=== PATIENT | female | born 1945 | race Caucasian/White ===

== ENCOUNTER 2022-05-06 13:11 | Inpatient (IN) | payer MEDICARE, BC, SELFPAY ==
[2022-05-06 13:32] VITALS: BP 217/115; PULSE 91; RESP 36; TEMP 37.1; O2SAT 84; BMI 31.6
[2022-05-06] MEDS: IPRAT-ALBUT 0.5-2.5 MG/3 ML NEB 1 NEB IH ×2 (13:39→23:40)
[2022-05-06] MEDS: ALBUTEROL SULFATE 2.5 MG/3 ML VIAL.NEB NEB ×2 (13:45→14:39)
--- NOTE | 2022-05-06 13:54 | CRLHL7_ITS ---
For Patients: As a result of the Cures Act, medical imaging exams and procedure reports are released immediately into your electronic medical record. You may view this report before your referring provider. If you have questions, please contact your health care provider. INDICATION: Cough. TECHNIQUE: Chest 2 views. COMPARISON: Chest radiograph 02/24/2020. FINDINGS: No focal consolidation, pleural effusion, or pneumothorax. Normal heart size and pulmonary vascularity. Degenerative changes of the spine. Anterior wedging of a lumbar vertebral body. Partially imaged deformity of the proximal right humerus appears new since prior exam. Correlate with patient history. IMPRESSION: No acute cardiopulmonary findings. Dictated by Macy Hartman MD @ 05/06/2022 2:47:01 PM (Electronically Signed)
[2022-05-06 13:55] VITALS: O2SAT 91
--- NOTE | 2022-05-06 13:59 | RESP.RT ---
Pt seen upon arrival. hypoxic on RA, SPO2 on 2-3L 93% PT with tight wheezing from the doorway. Duoneb given followed by 2.5mg of albuterol. Pt with improved aeration, however diffuse prolonged coarse expiratory wheezing remains. Pt poor historian. Unsure of meds or inhalers she takes. continue with aggressive nebulization. Will wait to see CXR result Suspect pt will be receiving IV steroids.
[2022-05-06] MEDS: METHYLPREDNISOLONE SOD SUCC 62.5 MG/ML (125) 125 MG IVP (14:38)
[2022-05-06 14:40] LABS: PCR FLU A Negative PCR FLU A (Negative); PCR FLU B Negative PCR FLU B (Negative); PCR RSV Negative PCR RSV (Negative)
[2022-05-06 14:56] LABS: Basophils Absolute Auto 0.06 K/uL (0.00-0.30); Basophils Percent Auto 1.3 % (0.0-3.0); Eosinophils Absolute Auto 0.22 K/uL (0.00-0.50); Eosinophils Percent Auto 4.8 % (0.0-7.0); Hematocrit 42.1 % (33.0-51.0); Hemoglobin* 14.1 gm/dL (12.0-16.0); Immature Granulocytes Abs Auto 0.01 K/uL (0.00-0.30); Immature Granulocytes Pct Auto 0.2 %; Lymphocytes Percent Auto 13.2 % (20-44); Mean Corpuscular HGB Conc 34 gm/dL (32-36); Mean Corpuscular Hemoglobin 29 pg (26-34); Mean Corpuscular Volume 87 fL (80-100); Monocytes Percent Auto 7.8 % (0.0-11.0); Neutrophils Percent Auto 72.7 % (42.0-72.0); Platelet Count* 152 K/uL (140-440); RDW Coefficient of Variation % 13.2 % (11.5-15.5); Red Blood Count 4.83 m/uL (4.00-5.20); White Blood Count* 4.62 K/uL (4.50-11.00)
[2022-05-06 15:01] LABS: Troponin, Point-of-Care* 0.02 ng/ml (0.01-0.04)
[2022-05-06 15:04] LABS: SARS PCR* Negative SARS-CoV-2 (Negative)
[2022-05-06 15:08] LABS: INR 1.07 (0.91-1.10); Prothrombin Time 14.5 Seconds
[2022-05-06 15:13] LABS: Slide Review Reflex No
[2022-05-06 15:14] LABS: Partial Thromboplastin Time* 25 Seconds (23-33)
--- NOTE | 2022-05-06 15:14 | ED.SOB ---
HPI - SOB/Dyspnea General Date Seen: 05/06/22 Chief Complaint: Shortness of Breath/Dyspnea Stated Complaint: shortness of breath Time Seen by Provider: 05/06/22 13:37 Source: patient and family Mode of arrival: ambulatory Limitations: no limitations History of Present Illness HPI Narrative: Patient is the 76-year-old lady who presents here for shortness of breath, her initial saturations are in the low 80s, she has a history of asthma and tightness and COPD, she is immediately given a DuoNeb followed up with another neb of albuterol, I to see her in the room2 in no apparent distress, with increased work of breathing, she is able to speak to me now and pretty well full sentences, the saturations just post neb at 100%. She tells me that she has had this before, and it comes on rather suddenly, no history of intubation, denies any fevers chills or sweats, has had a cold with a runny nose, no nausea vomiting no diarrhea, no rash MD elicited complaint: shortness of breath and cough Pertinent past history: COPD and asthma Onset (ago): day(s) Context: recent illness Timing: constant Severity: moderate Exacerbating factors: nothing Related Data Home oxygen amount: none Home Medications Medication Instructions Recorded Confirmed albuterol sulfate 2.5 mg/3 mL mg 05/06/22 (0.083 %) solution for nebulization albuterol sulfate 90 mcg/actuation inhalation 05/06/22 aerosol inhaler budesonide 1 mg/2 mL suspension mg 05/06/22 for nebulization clonazepam 1 mg tablet mg 05/06/22 fluticasone propionate 110 inhalation 05/06/22 mcg/actuation HFA aerosol inhaler (Flovent HFA) levothyroxine 88 mcg tablet mcg 05/06/22 sertraline 25 mg tablet mg 05/06/22 Allergies Allergy/AdvReac Type Severity Reaction Status Date / Time No Known Drug Allergies Allergy Verified 05/06/22 13:36 Review of Systems Status of ROS: Reports: 10 or more systems reviewed and unremarkable except as noted in History and below PFSH PFSH Social History Smoking Status: Former smoker Do you use any of these nicotine containing products: None Second hand tobacco smoke exposure: No How often do you have a drink containing alcohol: never AUDIT-C Alcohol total score: 0 Non-prescribed substance use: denies use Exam Const: Vital Signs, click to edit/add: Vital Signs - 24 hr 05/06/22 13:32 05/06/22 15:27 Temperature 98.7 F 98.3 F Pulse Rate [Pulse Oximeter] 91 Respiratory Rate 36 H 28 H Blood Pressure [Le ft Upper Arm] 217/115 H 151/66 H Pulse Oximetry 84 L 92 Oxygen Delivery Me thod Room Air Nasal Cannula Course Course Hospital Course: Yaneth continued to still struggle to breathe a little bit, we had to repeat the neb again, her saturation have markedly rib prove or improved into the 96% range. Reevaluation(s) Reevaluation #1: Went back and saw the patient, she still requiring oxygen, off oxygen she dipped down into the 87% range, I took a lot of talking, to get her to convinced to come into the hospital, her need for oxygen, had the respiratory therapist also see her,. At this point, she will be needing both oxygen, and nebulize treatments. Along with steroids. I spoke to the inpatient physician Dr. Chun, who agreed to admit her to the hospital. Time: 16:35 Vital Signs Vital signs: Initial Vital Signs Temperature 98.7 F 05/06/22 13:32 Temperature Source Temporal Artery Scan 05/06/22 13:32 Pulse Rate 91 05/06/22 13:32 Respiratory Rate 36 H 05/06/22 13:32 Blood Pressure 217/115 H 05/06/22 13:32 Blood Pressure Mean 149 05/06/22 13:32 Blood Pressure Position Supine 05/06/22 13:32 Pulse Oximetry 84 L 05/06/22 13:32 Oxygen Delivery Method 05/06/22 13:32 Vital Signs Temperature 98.7 F 05/06/22 13:32 Pulse Rate 91 05/06/22 13:32 Respiratory Rate 36 H 05/06/22 13:32 Blood Pressure 217/115 H 05/06/22 13:32 Pulse Oximetry 84 L 05/06/22 13:32 Oxygen Delivery Method 05/06/22 13:32 Temperature 98.3 F 05/06/22 15:27 Pulse Rate 91 05/06/22 13:32 Respiratory Rate 28 H 05/06/22 15:27 Blood Pressure 151/66 H 05/06/22 15:27 Pulse Oximetry 92 05/06/22 15:27 Oxygen Delivery Method 05/06/22 15:27 MDM - SOB/Dyspnea MDM Narrative Medical decision making narrative: Life-threatening differential diagnosis includes occluded COPD exacerbation, pulmonary edema, acute coronary syndromes, pulmonary embolism, pneumonia, and pneumothorax. Other differential diagnosis considerations include asthma, bronchitis as well as other etiologies Differential Diagnosis Differential diagnosis: Likely acute exacerbation of chronic obstructive airways disease, congestive heart failure, community acquired pneumonia, asthma with exacerbation and pulmonary embolism Medical Records Attestation: I reviewed the patient's medical records. Lab Data Attestation: I reviewed the patient's lab results. Labs: Lab Results 05/06/22 05/06/22 05/06/22 Range/Units 13:50 13:55 14:17 WBC (4.50-11.00) K/uL RBC (4.00-5.20) m/uL Hgb (12.0-16.0) gm/dL Hct (33.0-51.0) % MCV (80-100) fL MCH (26-34) pg MCHC (32-36) gm/dL RDW Coeff of Dianna (11.5-15.5) % Plt Count (140-440) K/uL Neut % (Auto) (42.0-72.0) % Lymph % (Auto) (20-44) % [place] % (Auto) (0.0-11.0) % Eos % (Auto) (0.0-7.0) % Baso % (Auto) (0.0-3.0) % Neut # (Auto) (1.7-7.0) K/uL Lymph # (Auto) (0.90-2.90) K/uL [place] # (Auto) (0.00-0.90) K/UL Eos # (Auto) (0.00-0.50) K/uL Baso # (Auto) (0.00-0.30) K/uL Abs Immat Gran (auto) (0.00-0.30) K/uL Imm/Tot Granulo (auto) % INR (0.91-1.10) APTT (23-33) Seconds Sodium (135-149) mmol/L Potassium (3.6-5.1) mmol/L Chloride (96-114) mmol/L Carbon Dioxide (20-32) mmol/L BUN (7-30) mg/dL Creatinine (0.5-1.5) mg/dL Estimated Creat Clear Estimated GFR ml/min Glucose (60-115) mg/dL Calcium (8.4-10.6) mg/dL NT-Pro-B Natriuret Pep pg/mL SARS-CoV-2 (PCR) Negative SARS-CoV-2 Negative SARS-CoV-2 (Negative) Influenza Type A (PCR) Negative PCR FLU A Negative PCR FLU A (Negative) Influenza Type B (PCR) Negative PCR FLU B Negative PCR FLU B (Negative) RSV (PCR) Negative PCR RSV Negative PCR RSV (Negative) POC Troponin I 0.02 (0.01-0.04) ng/ml 05/06/22 05/06/22 05/06/22 Range/Units 14:30 14:30 14:30 WBC 4.62 (4.50-11.00) K/uL RBC 4.83 (4.00-5.20) m/uL Hgb 14.1 (12.0-16.0) gm/dL Hct 42.1 (33.0-51.0) % MCV 87 (80-100) fL MCH 29 (26-34) pg MCHC 34 (32-36) gm/dL RDW Coeff of Dianna 13.2 (11.5-15.5) % Plt Count 152 (140-440) K/uL Neut % (Auto) 72.7 H (42.0-72.0) % Lymph % (Auto) 13.2 L (20-44) % [place] % (Auto) 7.8 (0.0-11.0) % Eos % (Auto) 4.8 (0.0-7.0) % Baso % (Auto) 1.3 (0.0-3.0) % Neut # (Auto) 3.40 (1.7-7.0) K/uL Lymph # (Auto) 0.60 L (0.90-2.90) K/uL [place] # (Auto) 0.40 (0.00-0.90) K/UL Eos # (Auto) 0.22 (0.00-0.50) K/uL Baso # (Auto) 0.06 (0.00-0.30) K/uL Abs Immat Gran (auto) 0.01 (0.00-0.30) K/uL Imm/Tot Granulo (auto) 0.2 % INR 1.07 (0.91-1.10) APTT 25 (23-33) Seconds Sodium 137 (135-149) mmol/L Potassium 4.0 (3.6-5.1) mmol/L Chloride 102 (96-114) mmol/L Carbon Dioxide 28 (20-32) mmol/L BUN 9 (7-30) mg/dL Creatinine 0.7 (0.5-1.5) mg/dL Estimated Creat Clear 43.74 Estimated GFR 90 ml/min Glucose 108 (60-115) mg/dL Calcium 9.5 (8.4-10.6) mg/dL NT-Pro-B Natriuret Pep pg/mL SARS-CoV-2 (PCR) (Negative) Influenza Type A (PCR) (Negative) Influenza Type B (PCR) (Negative) RSV (PCR) (Negative) POC Troponin I (0.01-0.04) ng/ml 05/06/22 Range/Units 14:30 WBC (4.50-11.00) K/uL RBC (4.00-5.20) m/uL Hgb (12.0-16.0) gm/dL Hct (33.0-51.0) % MCV (80-100) fL MCH (26-34) pg MCHC (32-36) gm/dL RDW Coeff of Dianna (11.5-15.5) % Plt Count (140-440) K/uL Neut % (Auto) (42.0-72.0) % Lymph % (Auto) (20-44) % [place] % (Auto) (0.0-11.0) % Eos % (Auto) (0.0-7.0) % Baso % (Auto) (0.0-3.0) % Neut # (Auto) (1.7-7.0) K/uL Lymph # (Auto) (0.90-2.90) K/uL [place] # (Auto) (0.00-0.90) K/UL Eos # (Auto) (0.00-0.50) K/uL Baso # (Auto) (0.00-0.30) K/uL Abs Immat Gran (auto) (0.00-0.30) K/uL Imm/Tot Granulo (auto) % INR (0.91-1.10) APTT (23-33) Seconds Sodium (135-149) mmol/L Potassium (3.6-5.1) mmol/L Chloride (96-114) mmol/L Carbon Dioxide (20-32) mmol/L BUN (7-30) mg/dL Creatinine (0.5-1.5) mg/dL Estimated Creat Clear Estimated GFR ml/min Glucose (60-115) mg/dL Calcium (8.4-10.6) mg/dL NT-Pro-B Natriuret Pep 812 pg/mL SARS-CoV-2 (PCR) (Negative) Influenza Type A (PCR) (Negative) Influenza Type B (PCR) (Negative) RSV (PCR) (Negative) POC Troponin I (0.01-0.04) ng/ml Imaging Data Chest x-ray: Attestation: I have reviewed the pertinent imaging results. My impression: No acute finding Radiologist's impression: Patient: YANETH BOWMAN Facility: [facility] Site . Site : 1945 Study: XRay Chest 2 VIEW-05/06/2022 2:30:37 PM Ordering Physician: Carmen Romo Final Report: INDICATION: Cough. TECHNIQUE: Chest 2 views. COMPARISON: Chest radiograph 02/24/2020. FINDINGS: No focal consolidation, pleural effusion, or pneumothorax. Normal heart size and pulmonary vascularity. Degenerative changes of the spine. Anterior wedging of a lumbar vertebral body. Partially imaged deformity of the proximal right humerus appears new since prior exam. Correlate with patient history. IMPRESSION: No acute cardiopulmonary findings. Dictated by Macy Hartman MD @ 05/06/2022 2:47:01 PM (Electronic Signature) Discharge Plan Discharge Clinical Impression: Acute infective exacerbation of chronic obstructive airway disease Patient Disposition: Admitted As Inpatient Prescriptions: No Action albuterol sulfate 2.5 mg /3 mL (0.083 %) solution for nebulization Label Comments: INHALE 3 ML VIA A NEBULIZER EVERY 6 HOURS clonazepam 1 mg tablet Label Comments: TAKE ONE TABLET BY MOUTH TWICE A DAY levothyroxine 88 mcg tablet Label Comments: TAKE ONE TABLET BY MOUTH EVERY DAY sertraline 25 mg tablet Label Comments: TAKE ONE TABLET BY MOUTH EVERY MORNING albuterol sulfate 90 mcg/actuation HFA aerosol inhaler INHALATION Label Comments: INHALE TWO PUFFS BY MOUTH EVERY 4 HOURS NEEDED FOR SHORTNESS OF BREATH OR WHEEZING fluticasone propionate [Flovent HFA] 110 mcg/actuation HFA aerosol inhaler INHALATION Label Comments: INHALE ONE PUFF BY MOUTH TWICE A DAY budesonide 1 mg/2 mL suspension for nebulization Label Comments: INHALE 2 ML VIA A NEBULIZER TWO TIMES A DAY Follow Up/Referrals: Provider,Not a Local [Primary Care Provider] -
[2022-05-06 15:18] LABS: PCR FLU A Negative PCR FLU A (Negative); PCR FLU B Negative PCR FLU B (Negative); PCR RSV Negative PCR RSV (Negative)
[2022-05-06 15:25] LABS: SARS PCR* Negative SARS-CoV-2 (Negative)
[2022-05-06 15:27] VITALS: BP 151/66; RESP 28; TEMP 36.8; O2SAT 92
[2022-05-06 15:32] LABS: NT Pro B Type NatriureticPept* 812 pg/mL
[2022-05-06 15:46] LABS: Chloride* 102 mmol/L (96-114); Sodium* 137 mmol/L (135-149)
[2022-05-06 15:48] LABS: Creatinine* 0.7 mg/dL (0.5-1.5); Est. Creatinine Clearance* 43.74; Estimated Glomerular Filt Rate 90 ml/min
[2022-05-06 15:49] LABS: Blood Urea Nitrogen* 9 mg/dL (7-30); Calcium* 9.5 mg/dL (8.4-10.6); Carbon Dioxide* 28 mmol/L (20-32); Glucose* 108 mg/dL (60-115)
--- NOTE | 2022-05-06 17:14 | P.IMHP_ITS ---
Hospitalist- H&P: HPI History of Present Illness Date Seen: 05/06/22 Chief complaint: shortness of breath Narrative: Alissa Red is a 76 year old female with longstanding history of asthma admitted through the emergency department with 3-4 days of progressive dyspnea. She reports that she has had progressive dyspnea with cough productive of whitish sputum. She is not aware of any fever. He is having no chest pain. No orthopnea. She reports a diagnosis of asthma. She does not carry a diagnosis of COPD. She smoked minimally in high school up to about age 21. She did a londono and lived with him until about 35 years ago. No other obvious exposures. Patient has significant cognitive impairment or dementia. She is here with her who gives additional information about her history along with what is obtained from the medical record. Patient is unaware of getting any asthma treatments including inhalers or nebulizers but her reports that she does take them. Unclear if she is taking them regularly. These include albuterol inhaler, albuterol nebulizer, Flovent. She reports no heart disease though her record shows that she has a history of paroxysmal atrial fibrillation. Previously treated with Rythmol and anticoagulation. Review of Systems Narrative: Other than her cough and trouble breathing she reports generally feeling well. Her appetite has been less than usual. No abdominal pain nausea vomiting. No chest pain. [facility] Medical History (Updated 05/06/22 @ 17:36 by Bert Chun MD) Anxiety Asthma Dementia Depression Hypertension Obstructive sleep apnea Osteoarthritis Peripheral edema Surgical History (Updated 05/06/22 @ 17:29 by Bert Chun MD) H/O varicose vein stripping History of abdominal hysterectomy History of cataract surgery History of colonoscopy History of esophagogastroduodenoscopy (EGD) History of hernia repair History of laparoscopic cholecystectomy Family History (Updated 05/06/22 @ 17:31 by Bert Chun MD) Brother Alcohol dependence Bone cancer Prostate cancer Heart disease Social History (Updated 05/06/22 @ 17:33 by Bert Chun MD) Narrative: She lives with her in [place]. 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 Code status is full. Remote history of smoking in high school and shortly afterwards. She does not drink alcohol. Smoking Status: Former smoker Do you use any of these nicotine containing products: None Second hand tobacco smoke exposure: No How often do you have a drink containing alcohol: never AUDIT-C Alcohol total score: 0 Non-prescribed substance use: denies use Meds Home Medications and Allergies Home Medications Medication Instructions Recorded Confirmed Type albuterol sulfate 2.5 mg/3 mL 2.5 mg inhalation Q6H PRN 05/06/22 05/06/22 History (0.083 %) solution for nebulization albuterol sulfate 90 mcg/actuation 2 puff inhalation Q4H PRN 05/06/22 05/06/22 History aerosol inhaler clonazepam 1 mg tablet 1 mg PO BID 05/06/22 05/06/22 History fluticasone propionate 110 1 puff inhalation BID PRN 05/06/22 05/06/22 History mcg/actuation HFA aerosol inhaler (Flovent HFA) levothyroxine 88 mcg tablet 88 mcg PO DAILY 05/06/22 05/06/22 History multivit with 1 tab PO DAILY 05/06/22 05/06/22 History rqrfpsjv-lbjo-MJ-lutein 8 mg iron-400 mcg-300 mcg tablet (Multivitamin Women 50 Plus) sertraline 25 mg tablet 50 mg PO DAILY 05/06/22 05/06/22 History Allergies Allergy/AdvReac Type Severity Reaction Status Date / Time No Known Drug Allergies Allergy Verified 05/06/22 13:36 Exam Narrative: Exam Narrative: She is alert and appears in mild respiratory distress with increased rate and work of breathing. Breathing oxygen. She is oriented to be in the hospital. Unable to give good details of recent medical events, past medical history and medications. History is corroborated by her . Head is without trauma. Eyes normal. Oropharynx with dry mucous membranes and small airway. Neck is supple without mass or adenopathy or tenderness. Respirations are markedly diminished. She has prolonged expiratory phase. Poor air exchange in all lung cardenas. Expiratory wheezing and fine crackles are noted diffusely but most prominently in the lung bases. Cardiovascular: S1, S2, regular rate and rhythm. No murmur gallop or rub. Abdomen is soft without tenderness or mass. Extremities with intact pedal pulses. No significant edema. She moves all 4 extremities well. There is no rash. Const: Vital Signs, click to edit/add: Vital Signs - 24 hr 05/06/22 13:32 05/06/22 15:27 Temperature 98.7 F 98.3 F Pulse Rate [Pulse Oximeter] 91 Respiratory Rate 36 H 28 H Blood Pressure [Le ft Upper Arm] 217/115 H 151/66 H Pulse Oximetry 84 L 92 Oxygen Delivery Me thod Room Air Nasal Cannula Documenting provider has reviewed patient's vital signs: yes Hospitalist - H&P: Result Labs Labs: Short CBC 05/06/22 Range/Units 14:30 WBC 4.62 (4.50-11.00) K/uL Hgb 14.1 (12.0-16.0) gm/dL Hct 42.1 (33.0-51.0) % Plt Count 152 (140-440) K/uL BMP 05/06/22 14:30 Sodium 137 Potassium 4.0 Chloride 102 Carbon Dioxide 28 BUN 9 Creatinine 0.7 Glucose 108 Calcium 9.5 Assessment and Plan Assessment and plan (1) Asthma exacerbation: Status: Acute (2) Dementia: Status: Acute Plan 76-year-old female whole admitted with exacerbation of asthma with hypoxic respiratory failure. Some component of COPD may also be present.. No obvious infection though viral illness could likely be a trigger. No other obvious triggers. Uncertain how well patient is managing her asthma at home due to dementia. Initial treatment will be systemic corticosteroids and inhaled bronchodilators. Will hold off on antibiotics for now. Respiratory therapy consult. Oxygen as needed. Total time spent today is 60 minutes, 40 minutes in coordination of care and discussing with patient, and other providers ongoing evaluation management of asthma and hypoxic respiratory failure
[2022-05-06 17:29] VITALS: BP 158/89; RESP 20; RESP 22; TEMP 36.2; O2SAT 94; O2SAT 96; BMI 28.7
[2022-05-06 19:00] VITALS: BP 143/77; PULSE 103; RESP 22; TEMP 36.6; O2SAT 92
--- NOTE | 2022-05-06 19:01 | PC.NURSE ---
Patient alert and oriented x4, pleasant and cooperative, lung sounds include inspiratory and expiratory wheezing throughout, no SOB, patient denies pain, up ind, tolerating regular diet. Medications sent home with .
[2022-05-06 19:40] VITALS: PULSE 96
[2022-05-06] MEDS: clonazePAM 0.5 MG TABLET 1 MG PO (21:45)
[2022-05-06] MEDS: MELATONIN 3 MG TABLET PO (21:45)
[2022-05-07] VITALS (11 sets, daily range): BP systolic 101–142; BP diastolic 59–80; PULSE 65–93; RESP 18–22; TEMP 36.1–36.6; O2SAT 93–96
[2022-05-07] MEDS: IPRAT-ALBUT 0.5-2.5 MG/3 ML NEB 1 NEB IH ×4 (05:38→23:11)
--- NOTE | 2022-05-07 06:52 | PC.NURSE ---
Shift note: The pt has been very confused ; disoriented to time, place, and situations; the pt has been reoriented throughout the shift. Hower, the pt didn't get out of bed throughout the night due to confusion, she had been sleeping . The pt has been on 2L of oxygen via NC throughout the night tho keep Spo2 in the 90s. She was wheezy, which was improved with Neb treatment. Denied chest pain and any other acute distress . Short of breath with exertion noted. Tele has bee showing NSR with BBB.
[2022-05-07] MEDS: LEVOTHYROXINE 88 MCG TABLET PO (07:05)
[2022-05-07] MEDS: predniSONE 10 MG TABLET 50 MG PO (09:25)
[2022-05-07] MEDS: clonazePAM 0.5 MG TABLET 1 MG PO ×2 (09:27→21:21)
[2022-05-07] MEDS: SERTRALINE 50 MG TABLET PO (09:28)
--- NOTE | 2022-05-07 12:46 | RESP.RT ---
Saw Pt this AM, familiar to me from yesterday in ED. Pt's dementia seems worse this AM. Unable to answer any questions that I posed to her vs yesterday. Asked me if I could get her a drink of alcohol. Pt mad at for going to work vs picking her up. Explained to pt, she still was not good enough to go home. We would like to have her for one more day. BBS coarse expiratory wheezing and Rhonchi, good aeration, much improved vs yesterday. Pt still requiring oxygen, low flow, although she does remove it at times. May need to use nebs at home vs MDI's, as I don't think she understands the use of them.
--- NOTE | 2022-05-07 14:13 | P.IMPN_ITS ---
Progress Note: A&P Assessment and plan (1) Acute respiratory failure with hypoxia: Problem details: - 2/2 asthma exacerbation - continue to taper supplemental oxygen as tolerated - appreciate input from RT Status: Acute (2) Asthma exacerbation: Problem details: - continue steroids, nebs - no evidence of bacterial infection Status: Acute (3) Dementia: Status: Acute Plan - per above - Lovenox for ppx - home when tolerating RA - updated at bedside Subjective Date Seen: 05/07/22 Interval history: No acute events overnight. Patient has no concerns for the hospitalist team. She required supplemental oxygen overnight. Exam Narrative: Exam Narrative: GEN: Alert, ambulating in room HEENT: Normal external ears, EOMIs bilaterally CV: RRR, No concerning murmurs, rubs, or gallops R: Intermittent tachypnea, wheezing throughout bilateral lung cardenas Ext: wwp, no concerning edema Skin: No concerning skin lesions or rashes on exposed skin Neuro: No focal deficits Psych: Anxious about staying in the hospital, cognitive impairment is evident Const: Vital Signs, click to edit/add: Vital Signs - 24 hr 05/06/22 15:27 05/06/22 17:29 05/06/22 17:29 Temperature 98.3 F 97.2 F L Pulse Rate Pulse Rate [Pulse Oximeter] Respiratory Rate 28 H 22 20 Blood Pressure [Le ft Arm] 158/89 H Blood Pressure [Le ft Upper Arm] 151/66 H Pulse Oximetry 92 96 94 Oxygen Delivery Me thod Nasal Cannula Nasal Cannula Nasal Cannula Oxygen Flow Rate 2 2 05/06/22 19:00 05/06/22 19:40 05/07/22 01:06 Temperature 97.9 F Pulse Rate 96 Pulse Rate [Pulse Oximeter] 103 H Respiratory Rate 22 Blood Pressure [Le ft Arm] 143/77 H Blood Pressure [Le ft Upper Arm] Pulse Oximetry 92 93 Oxygen Delivery Me thod Nasal Cannula Oxygen Flow Rate 2 05/07/22 01:06 05/07/22 01:06 05/07/22 01:10 Temperature Pulse Rate 89 Pulse Rate [Pulse Oximeter] 92 Respiratory Rate 18 20 Blood Pressure [Le ft Arm] Blood Pressure [Le ft Upper Arm] Pulse Oximetry 93 Oxygen Delivery Me thod Nasal Cannula Oxygen Flow Rate 2 05/07/22 00:30 05/07/22 05:30 05/07/22 07:56 Temperature 97.1 F L 97.5 F L Pulse Rate 87 Pulse Rate [Pulse Oximeter] 93 65 Respiratory Rate 20 20 Blood Pressure [Le ft Arm] 130/80 101/59 L Blood Pressure [Le ft Upper Arm] Pulse Oximetry 93 93 Oxygen Delivery Me thod Nasal Cannula Nasal Cannula Oxygen Flow Rate 2 2 05/07/22 07:35 05/07/22 07:35 05/07/22 07:35 Temperature Pulse Rate Pulse Rate [Pulse Oximeter] 88 Respiratory Rate 22 22 Blood Pressure [Le ft Arm] Blood Pressure [Le ft Upper Arm] Pulse Oximetry 94 93 Oxygen Delivery Me thod Nasal Cannula Oxygen Flow Rate 2 05/07/22 07:35 05/07/22 11:00 Temperature 97.0 F L 97.1 F L Pulse Rate Pulse Rate [Pulse Oximeter] 88 89 Respiratory Rate 22 20 Blood Pressure [Le ft Arm] 129/73 110/69 Blood Pressure [Le ft Upper Arm] Pulse Oximetry 93 94 Oxygen Delivery Me thod Nasal Cannula Nasal Cannula Oxygen Flow Rate 2 2 Labs Labs: Laboratory Results - last 24 hr 05/06/22 05/06/22 05/06/22 13:50 13:55 14:17 WBC RBC Hgb Hct MCV MCH MCHC RDW Coeff of Dianna Plt Count Neut % (Auto) Lymph % (Auto) [place] % (Auto) Eos % (Auto) Baso % (Auto) Neut # (Auto) Lymph # (Auto) [place] # (Auto) Eos # (Auto) Baso # (Auto) Abs Immat Gran (auto) Imm/Tot Granulo (auto) INR APTT Sodium Potassium Chloride Carbon Dioxide BUN Creatinine Estimated Creat Clear Estimated GFR Glucose Calcium NT-Pro-B Natriuret Pep SARS-CoV-2 (PCR) Negative SARS-CoV-2 Negative SARS-CoV-2 Influenza Type A (PCR) Negative PCR FLU A Negative PCR FLU A Influenza Type B (PCR) Negative PCR FLU B Negative PCR FLU B RSV (PCR) Negative PCR RSV Negative PCR RSV POC Troponin I 0.02 05/06/22 05/06/22 05/06/22 14:30 14:30 14:30 WBC 4.62 RBC 4.83 Hgb 14.1 Hct 42.1 MCV 87 MCH 29 MCHC 34 RDW Coeff of Dianna 13.2 Plt Count 152 Neut % (Auto) 72.7 H Lymph % (Auto) 13.2 L [place] % (Auto) 7.8 Eos % (Auto) 4.8 Baso % (Auto) 1.3 Neut # (Auto) 3.40 Lymph # (Auto) 0.60 L [place] # (Auto) 0.40 Eos # (Auto) 0.22 Baso # (Auto) 0.06 Abs Immat Gran (auto) 0.01 Imm/Tot Granulo (auto) 0.2 INR 1.07 APTT 25 Sodium 137 Potassium 4.0 Chloride 102 Carbon Dioxide 28 BUN 9 Creatinine 0.7 Estimated Creat Clear 43.74 Estimated GFR 90 Glucose 108 Calcium 9.5 NT-Pro-B Natriuret Pep SARS-CoV-2 (PCR) Influenza Type A (PCR) Influenza Type B (PCR) RSV (PCR) POC Troponin I 05/06/22 14:30 WBC RBC Hgb Hct MCV MCH MCHC RDW Coeff of Dianna Plt Count Neut % (Auto) Lymph % (Auto) [place] % (Auto) Eos % (Auto) Baso % (Auto) Neut # (Auto) Lymph # (Auto) [place] # (Auto) Eos # (Auto) Baso # (Auto) Abs Immat Gran (auto) Imm/Tot Granulo (auto) INR APTT Sodium Potassium Chloride Carbon Dioxide BUN Creatinine Estimated Creat Clear Estimated GFR Glucose Calcium NT-Pro-B Natriuret Pep 812 SARS-CoV-2 (PCR) Influenza Type A (PCR) Influenza Type B (PCR) RSV (PCR) POC Troponin I
--- NOTE | 2022-05-07 14:45 | PC.NURSE ---
Pt was pleasant and cooperative. Pt is oriented to self and time only. Forgetful at times. Pt lung sounds have inspiratory and expiratory wheezes through out. 02 sats have been between 88-92% with 2 L of oxygen running. Pt often takes off oxygen and frequently requires reinforcement teaching and reminders to keep the oxygen on.
--- NOTE | 2022-05-07 15:12 | NUTR.NU ---
RDN with nutrition screen, weight loss reported per patient/family of 34 lbs or more. Patient has a history of severe cognitive impairment, not appropriate to visit with. RDN attempted to speak with designated caregiver and (Brandan) however he did not answer his phone. RDN left voice message and has not received call back. BMI is overweight at 28.7 kg/m2. No recent weight history for RDN to assess. Meal intakes since admit have been 100%. RDN will continue to wait for call back from Brandan. No nutrition interventions at this time due to adequate oral intakes. RDN will continue to monitor and follow-up prn.
[2022-05-07] MEDS: MELATONIN 3 MG TABLET PO (21:21)
[2022-05-08 00:04] VITALS: BP 141/60; PULSE 66; RESP 20; TEMP 36.2; O2SAT 93
[2022-05-08 03:54] VITALS: PULSE 68; RESP 20; O2SAT 92
[2022-05-08] MEDS: IPRAT-ALBUT 0.5-2.5 MG/3 ML NEB 1 NEB IH (05:48)
[2022-05-08] MEDS: LEVOTHYROXINE 88 MCG TABLET PO (05:50)
[2022-05-08 05:53] VITALS: BP 140/71; PULSE 69; RESP 18; TEMP 36.1; O2SAT 94
--- NOTE | 2022-05-08 06:18 | PC.NURSE ---
End of shift status [id number] Patient alert and oriented but has intermittent confusion. Denies pain. BP stable. Weaned to room air and maintaining sats between 90-94%. Up independently to bathroom. Denies dyspnea with activity. Receiving scheduled duonebs. PRN melatonin given at bedtime. Pt observed resting between cares. Possible d/c home today.
[2022-05-08 07:00] VITALS: PULSE 77; RESP 18; O2SAT 92
[2022-05-08] MEDS: predniSONE 10 MG TABLET 50 MG PO (08:52)
[2022-05-08] MEDS: SERTRALINE 50 MG TABLET PO (08:53)
[2022-05-08] MEDS: clonazePAM 0.5 MG TABLET 1 MG PO (08:54)
[2022-05-08 09:00] VITALS: BP 140/71; PULSE 77; RESP 18; TEMP 36.4; O2SAT 92
--- NOTE | 2022-05-08 09:11 | P.DS_ITS ---
DS: Providers Provider Date Seen: 05/08/22 Date of admission: 05/06/22 20:25 Primary care physician: Valorie Barroso PA-C Admitting Clinician: Bert Chun MD Consults: RT Attending Physician on discharge: Marisabel Meek MD Date of Discharge: 05/08/22 DS: Diagnosis Discharge Diagnosis (1) Acute respiratory failure with hypoxia: Status: Acute Problem details: - 2/2 asthma exacerbation - appreciate input from RT - no evidence of bacterial infection, not treated with antibiotics (2) Asthma exacerbation: Status: Acute Problem details: - treated with steroids, nebs - required supplemental oxygen for first 24 hours of stay (3) Dementia: Status: Acute Problem details: - cognitive impairment evident during stay - continue f/u with PCP DS: Summary Hospital Course Hospital Course: 76-year-old female, admitted to the hospital on 05/06/2022 with acute hypoxic respiratory failure in the setting of asthma exacerbation. Alissa required supplemental oxygen for the 1st 24 hours of her stay; she was able to wean off on to room air on hospital day 2. She was also treated with prednisone and nebs; did not require antibiotics. Comorbid conditions remained stable, cognitive impairment was evident, and patient should follow-up with her PCP for this. She was stable for discharge home with on 05/08/2022; will be going home on prednisone taper and close PCP follow-up. Status at Discharge Cognitive/behavioral status at discharge: Cognitive impairment evident (known - routine PCP f/u) Functional status at discharge: independent ambulation Overall status at discharge: patient is progressing back to baseline Time Spent with Patient Time attestation: Total time spent providing and/or coordinating discharge services: Time spent: Greater than 30 minutes Specific discharge activities: Medication reconciliation, care coordination Exam Narrative: Exam Narrative: GEN: Alert and answering questions appropriately, intermittent confusion (baseline), oxygen saturation 93-95% on RA during my visit HEENT: Normal external ears, EOMIs bilaterally, no scleral icterus CV: RRR, soft systolic murmur without concerning findings R: No tachypnea at rest, wheezing throughout bilateral lung cardenas, air movement improved from admission Ext: wwp, no concerning edema Skin: No concerning skin lesions or rashes on exposed skin Neuro: No focal deficits Const: Vital Signs, click to edit/add: Vital Signs - 24 hr 05/07/22 11:00 12/14/22 15:30 05/07/22 15:30 Temperature 97.1 F L Pulse Rate [Pulse Oximeter] 89 79 Respiratory Rate 20 20 Blood Pressure [Le ft Arm] 110/69 Pulse Oximetry 94 93 Oxygen Delivery Me thod Nasal Cannula Oxygen Flow Rate 2 05/07/22 15:30 05/07/22 15:00 05/07/22 21:26 Temperature 97.9 F 97.1 F L Pulse Rate [Pulse Oximeter] 79 84 Respiratory Rate 20 20 Blood Pressure [Le ft Arm] 114/67 142/70 H Pulse Oximetry 93 93 96 Oxygen Delivery Me thod Nasal Cannula Nasal Cannula Nasal Cannula Oxygen Flow Rate 2 2 1 05/07/22 23:00 05/07/22 23:00 05/07/22 23:00 Temperature Pulse Rate [Pulse Oximeter] 84 Respiratory Rate 20 20 Blood Pressure [Le ft Arm] Pulse Oximetry 94 94 Oxygen Delivery Me thod Nasal Cannula Oxygen Flow Rate 1 05/08/22 00:04 05/08/22 03:54 05/08/22 05:53 Temperature 97.1 F L 97 F L Pulse Rate [Pulse Oximeter] 66 68 69 Respiratory Rate 20 20 18 Blood Pressure [Le ft Arm] 141/60 H 140/71 H Pulse Oximetry 93 92 94 Oxygen Delivery Me thod Nasal Cannula Room Air Room Air Oxygen Flow Rate 1 Discharge Plan Discharge Disposition: Home, Self-Care Date of Admission: 05/06/22 20:25 Attending Provider on Discharge: Marisabel Meek Primary Care Provider: Provider,Not a Local Condition: Improved Anticipated Discharge Date/Time: 05/08/22 13:00 Discharge Medications: New prednisone 10 mg Tablet 40 mg PO DAILY 15 Days Qty: 31 0RF Rx Instructions: 4 tabs daily for 4 days, then 2 tabs po daily x4 days, then 1 tab po daily x7 days, then stop Continued albuterol sulfate 2.5 mg /3 mL (0.083 %) solution for nebulization 2.5 mg inhalation Q6H PRN Label Comments: INHALE 3 ML VIA A NEBULIZER EVERY 6 HOURS clonazepam 1 mg tablet 1 mg PO .2-3X/DAY Label Comments: PRESCRIBED TWICE A DAY, SOMETIMES TAKES UP TO 3 TIMES PER DAY levothyroxine 88 mcg tablet 88 mcg PO DAILY Label Comments: TAKE ONE TABLET BY MOUTH EVERY DAY sertraline 25 mg tablet 50 mg PO DAILY albuterol sulfate 90 mcg/actuation HFA aerosol inhaler 2 puff inhalation Q4H PRN Label Comments: INHALE TWO PUFFS BY MOUTH EVERY 4 HOURS NEEDED FOR SHORTNESS OF BREATH OR WHEEZING fluticasone propionate [Flovent HFA] 110 mcg/actuation HFA aerosol inhaler 1 puff INHALATION BID PRN Label Comments: DOES NOT TAKE REGULARLY DUE TO COST Multivitamin Women 50 Plus 8 mg iron-400 mcg-300 mcg tablet 1 tab PO DAILY Discharge Orders: Discharge Order (Routine); Ordered 05/08/22 Ordered By: Marisabel Meek Patient Education: Prednisone (By mouth), Asthma (DC) Additional Instructions: You will need to go to [facility] 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 Make sure you're taking this to treat your asthma. It's also important to make sure you're using your FLOVENT inhaler twice per day scheduled, and your Albuterol nebs or inhaler as needed for coughing or wheezing. Activity Level: Activity as Tolerated Discharge Diet: Regular Follow Up Appointments: Valorie Barroso PA-C [Referring] - 05/13/22 10:30 am Forms: Work/School Release, [employer] Info Instructions
[2022-05-08 10:18] VITALS: PULSE 87; RESP 18; TEMP 36.4
--- NOTE | 2022-05-08 11:06 | PC.NURSE ---
Pt alert and oriented. Lung sounds had expiratory wheezing. O2 sats between 90-94 on room air. Up Ind. IV taken out at discharge. Discharge education given to patient and . Verbalized understanding needs reinforcement. Wheelchair offered at discharge, patient declined.
== END 2022-05-08 10:40 | disposition home or self-care (01) | DRG 189 ==
LOC: ED 16:37 → MEDSURG 17:03
PROVIDERS: Admitting Provider Family Medicine; Emergency Provider Family Medicine; Visit Provider Family Medicine
DX: J96.01 Acute respiratory failure with hypoxia (principal); J45.901 Unspecified asthma with (acute) exacerbation; G47.33 Obstructive sleep apnea (adult) (pediatric); F03.90 Unspecified dementia, unspecified severity, without behavioral disturbance, psychotic disturbance, mood disturbance, and anxiety; I48.0 Paroxysmal atrial fibrillation; F41.9 Anxiety disorder, unspecified; I10 Essential (primary) hypertension; F32.A Depression, unspecified; Z87.891 Personal history of nicotine dependence
CPT/HCPCS: 36415; 71046; 80048; 83880; 84484; 85025; 85610; 85730; 87502; 87634; 87635; 93005; 94640; 94761; 99285; A9270; J2930; J7512

== ENCOUNTER 2022-06-24 15:29 | Emergency (ER) | payer MEDICARE, BC, SELFPAY ==
[2022-06-24 15:34] VITALS: BP 124/85; PULSE 86; RESP 18; TEMP 36; O2SAT 96; BMI 31.6
--- NOTE | 2022-06-24 18:12 | ED_ITS ---
HPI - General Adult General Time Seen by Provider: 18:12 Date Seen: 06/24/22 Chief complaint: Shortness of Breath/Dyspnea Stated complaint: Short of Breath Time Seen by Provider: 06/24/22 18:11 Source: patient, RN notes reviewed and old records reviewed Mode of arrival: ambulatory Limitations: no limitations History of Present Illness HPI narrative: Patient is a 76-year-old female coming in with family with concern of a cough for about a year. Patient is reportedly having a right shoulder replacement in [place] and has underlying asthma. She is concerned as she states she is coughing. The coughing is intermittent. It is unclear if it wakes her up at night it all as she gets up to go to the bathroom per report. She has a long- term history of asthma. Has a very remote history of smoking maybe for about a year when she was young. She has what sounds to be nebulizers which may be albuterol and ipratropium, and albuterol inhaler. When I question about inhaled steroids, she states she has a Flovent but it is very expensive. The cough has been present for about a year. She sleeps with 2 pillows and will sleep on her back or her side. The patient is reported to be notably wheezing sometimes at night. There are no chronic fevers noted. It does not sound that this started with an illness but they do note that illnesses typically make her asthma worse. She feels her primary care provider is young. When I question things such as pulmonary function tests, chest x-ray, she states none of these have been done. They know that she had blood work at her preop. She denies any chest pain with this at all. There has been no edema. Does not sound like she has any orthopnea or paroxysmal nocturnal dyspnea. Related Data Home Medications Medication Instructions Recorded Confirmed albuterol sulfate 2.5 mg/3 mL 2.5 mg inhalation Q6H PRN 05/06/22 06/24/22 (0.083 %) solution for nebulization albuterol sulfate 90 mcg/actuation 2 puff inhalation Q4H PRN 05/06/22 06/24/22 aerosol inhaler clonazepam 1 mg tablet 1 mg PO .2-3X/DAY 05/06/22 06/24/22 fluticasone propionate 110 1 puff inhalation BID PRN 05/06/22 06/24/22 mcg/actuation HFA aerosol inhaler (Flovent HFA) levothyroxine 88 mcg tablet 88 mcg PO DAILY 05/06/22 06/24/22 multivit with 1 tab PO DAILY 05/06/22 06/24/22 [id number]-EJ-lutein 8 mg iron-400 mcg-300 mcg tablet (Multivitamin Women 50 Plus) sertraline 25 mg tablet 50 mg PO DAILY 05/06/22 06/24/22 Previous Rx's Medication Instructions Recorded prednisone 20 mg tablet 20 mg PO BID #10 tabs 06/24/22 Allergies Allergy/AdvReac Type Severity Reaction Status Date / Time No Known Drug Allergies Allergy Verified 06/24/22 15:42 [facility] Medical History (Updated 06/24/22 @ 19:56 by Araceli Ibarra MD) Anxiety Asthma Dementia Depression Hypertension Obstructive sleep apnea Osteoarthritis Peripheral edema Surgical History (Updated 05/06/22 @ 17:29 by Bert Chun MD) H/O varicose vein stripping History of abdominal hysterectomy History of cataract surgery History of colonoscopy History of esophagogastroduodenoscopy (EGD) History of hernia repair History of laparoscopic cholecystectomy Family History (Updated 05/06/22 @ 17:31 by Bert Chun MD) Brother Alcohol dependence Bone cancer Prostate cancer Heart disease Social History (Updated 05/06/22 @ 17:33 by Bert Chun MD) Narrative: She lives with her in [place]. 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 Code status is full. Remote history of smoking in high school and shortly afterwards. She does not drink alcohol. Highest level of school completed/degree received: some college, no degree Smoking Status: Former smoker What tobacco products do you use: cigarettes Smoking packs per day: 1 Smoking cigarettes per day: 20.0 Years smoked: 7 Smoking pack-years: 7.00 Smoking quit date/years: >15 years ago Do you use any of these nicotine containing products: None Second hand tobacco smoke exposure: No How often do you have a drink containing alcohol: never AUDIT-C Alcohol total score: 0 Non-prescribed substance use: denies use Caffeine: Yes (coffee) service: No Exam Const: Vital Signs, click to edit/add: Vital Signs - 24 hr 06/24/22 15:34 01/31/23 18:33 Temperature 96.8 F L 97.1 F L Pulse Rate [Right Pulse Oximeter] 86 88 Respiratory Rate 18 16 Blood Pressure [Le ft Upper Arm] 124/85 136/87 Pulse Oximetry 96 93 Oxygen Delivery Me thod Room Air Room Air Documenting provider has reviewed patient's vital signs: yes Common normals: no apparent distress (Sitting up on the edge of the bed), average body habitus, oriented x3, no limitations, healthy appearing, alert and well nourished General appearance: cooperative, comfortable and well kempt Orientation/consciousness: Yes awake Other: Able to speak in complete sentences, no difficulty, no wheezing noted while talking. She did not cough during my initial interaction with her at all. HENMT: Common normals: normocephalic, head/scalp atraumatic, hearing grossly normal bilaterally and external ears normal Head and scalp: normocephalic and atraumatic External ear: external ears normal Eye: Common normals: PERRL, EOMs intact bilaterally, conjunctivae normal and no scleral icterus Conjunctiva: conjunctiva(e) normal Pupil: PERRL Neck & C-Spine: Common normals: full ROM, no lymphadenopathy, supple, no meningeal signs, no JVD and thyroid normal Thyroid: thyroid normal Chest: Common normals: inspection of chest normal Resp: Common normals: normal respiratory effort, no retractions and no use of accessory muscles Effort & inspection: able to speak in complete sentences and symmetric chest movement Other: Has mildly distant breath sounds, some occasional rhonchi but I hear no wheezing. Work of breathing is easy. Cardio: Common normals: no JVD, regular rate, regular rhythm, S1 normal heart sound, S2 normal heart sound, no gallops, no clicks, no murmurs and no rub Rate: regular rate Rhythm: regular rhythm Heart sounds: S1 normal and S2 normal GI: Common normals: Normal to inspection, nondistended, normoactive bowel sounds present, soft to palpation, non-tender, no hepatosplenomegaly and no masses Palpation: soft and no hepatosplenomegaly Extremity: Other: Has thickened lower extremities which are symmetric but no pitting edema noted. No calf tenderness, no skin changes that are notable. Neuro: Common normals: oriented x3, moves all extremities and gait normal Sensorium/orientation: awake and alert Meningeal signs: no meningeal signs Psych: Appearance: well phaneuf hospital Course Course Hospital Course: Have reviewed with this patient upfront that I will try to evaluate this as best I can but I have definite concerns for expectations given that she has had these symptoms for a year. This may very well not be an emergent process that I can fix. If it is more of her asthma that is activated, she may need such things as pulmonary function testing, further treatment with asthma medicines which is certainly not my specialty. She may end up needing to see pulmonology. These are things that I cannot arrange for her nor do I have available for her. Clinically she looks quite well. I will start with a chest x-ray and some basic labs. By her exam and history this does not sound like congestive heart failure but when I did review her history, she does have a history of atrial fibrillation. Chest x-ray will help us delineate such a process of CHF as well. Respiratory therapy is no longer here, thus, they cannot assist in making recommendations for this patient at this time. Reevaluation(s) Reevaluation #1: Gave patient her normal chest x-ray report. Reviewed labs are normal, no congestive heart failure identified. She is in sinus rhythm. She is using her Flovent twice a day, sometimes states she uses it more. She was cautioned against this. She is on further questioning using her nebulization multiple times a day. She is aware that she uses ipratropium 4 times a day, will use her albuterol more frequently than that. At time she does feels like she is coughing and cannot breathe. Talked to them about maybe doing a course of steroids. I do think she needs further evaluation and management and possible upgrading of her asthma medicines. This is beyond my a expertise in the ER, would direct her back to her primary care doctor. Time: 20:32 Vital Signs Vital signs: Initial Vital Signs Temperature 96.8 F L 06/24/22 15:34 Temperature Source Temporal Artery Scan 06/24/22 15:34 Pulse Rate 86 06/24/22 15:34 Respiratory Rate 18 06/24/22 15:34 Blood Pressure 124/85 06/24/22 15:34 Blood Pressure Mean 98 06/24/22 15:34 Blood Pressure Position Sitting 06/24/22 15:34 Pulse Oximetry 96 06/24/22 15:34 Oxygen Delivery Method 06/24/22 15:34 Vital Signs Temperature 96.8 F L 06/24/22 15:34 Pulse Rate 86 06/24/22 15:34 Respiratory Rate 18 06/24/22 15:34 Blood Pressure 124/85 06/24/22 15:34 Pulse Oximetry 96 06/24/22 15:34 Oxygen Delivery Method 06/24/22 15:34 Temperature 97.1 F L 06/24/22 18:33 Pulse Rate 88 06/24/22 18:33 Respiratory Rate 16 06/24/22 18:33 Blood Pressure 136/87 06/24/22 18:33 Pulse Oximetry 93 06/24/22 18:33 Oxygen Delivery Method 06/24/22 18:33 Medical Decision Making Medical Records Medical records reviewed: Yes I reviewed the patient's medical records Medical records narrative: Looking back at the limited notes we have in our system, it appear she has a history of atrial fibrillation but when she was last in in 2019 she was in normal sinus rhythm. She was on Eliquis at that time, do not see this on her current med rec. Lab Data Lab results reviewed: Yes I reviewed the patient's lab results Labs: Lab Results 06/24/22 06/24/22 Range/Units 18:48 18:48 WBC 5.77 (4.50-11.00) K/uL RBC 4.77 (4.00-5.20) m/uL Hgb 14.0 (12.0-16.0) gm/dL Hct 41.6 (33.0-51.0) % MCV 87 (80-100) fL MCH 29 (26-34) pg MCHC 34 (32-36) gm/dL RDW Coeff of Dianna 14.0 (11.5-15.5) % Plt Count 180 (140-440) K/uL Neut % (Auto) 57.7 (42.0-72.0) % Lymph % (Auto) 24.1 (20-44) % [place] % (Auto) 7.6 (0.0-11.0) % Eos % (Auto) 9.7 H (0.0-7.0) % Baso % (Auto) 0.7 (0.0-3.0) % Neut # (Auto) 3.33 (1.7-7.0) K/uL Lymph # (Auto) 1.39 (0.90-2.90) K/uL [place] # (Auto) 0.40 (0.00-0.90) K/UL Eos # (Auto) 0.60 H (0.00-0.50) K/uL Baso # (Auto) 0.04 (0.00-0.30) K/uL Sodium 136 (135-149) mmol/L Potassium 4.2 (3.6-5.1) mmol/L Chloride 104 (96-114) mmol/L Carbon Dioxide 23 (20-32) mmol/L BUN 13 (7-30) mg/dL Creatinine 0.8 (0.5-1.5) mg/dL Estimated Creat Clear 43.74 Estimated GFR 77 ml/min Glucose 108 (60-115) mg/dL Calcium 9.7 (8.4-10.6) mg/dL Total Bilirubin 1.5 (0.1-1.5) mg/dL AST 18 (12-35) U/L ALT 15 (4-35) U/L Alkaline Phosphatase 55 (40-150) U/L NT-Pro-B Natriuret Pep 1360 pg/mL Total Protein 7.0 (6.0-8.3) g/dL Albumin 4.3 (3.3-5.0) g/dL Imaging Data Chest x-ray: Attestation: I have reviewed the pertinent imaging results. My impression: I do not see any evidence of any mass, no acute infiltrate to my preliminary review of this chest x-ray. Nor do I appreciate any congestive heart failure. Radiologist's impression: Patient: YANEHT BOWMAN Facility:?[facility] Patient ID:?[id number] Site Patient ID:?[id number]. Site :?[id number] Study:?XRay Chest 2 VIEWS-06/24/2022 6:46:03 PM Ordering Physician:Radha Charles Final Report: INDICATION: One year history of cough, asthma TECHNIQUE: Chest 2 views. COMPARISON: May 06, 2022 FINDINGS: Cardiovascular and mediastinum: Heart size and vasculature are normal in caliber and appearance. Mediastinum is within normal limits. Lungs and pleural spaces: Lungs are clear. No sign of infiltrate or mass. No sign of pleural effusion. No pneumothorax. Bones and soft tissues: Chronic appearing deformity of the proximal right humerus. IMPRESSION: No sign of acute disease. Chronic appearing deformity of the proximal right humerus. Correlate with clinical history. Dictated by Stephanie Montgomery MD @ 06/24/2022 6:54:06 PM (Electronic Signature) ECG Data Attestation: I personally reviewed and interpreted this ECG as follows: (Normal sinus rhythm, 74 beats per minute. Flipped T-waves lead V1 and V2 without any ST segment changes. No acute ischemia on my reading.) Prior ECG tracings: not available for review Critical Care Time Critical Care Time Critical Care Time: No Discharge Plan Discharge Clinical Impression: Chronic cough, Asthma Patient Disposition: Home, Self-Care Condition: Stable Instructions: Asthma (ED) Additional Instructions: Make sure you are taking your Flovent with the use of a spacer as prescribed. Need to schedule a follow-up appointment with your primary care provider regarding this cough symptoms in your underlying asthma. You need to let her know that the cough is problematic for you. You can discuss further testing such as pulmonary function testing to see how well controlled your asthma is. At this time, I see no evidence of infection, your vitals in pulse oximetry are stable, there is no evidence that you need oral steroids, antibiotics or any supplemental oxygen. I would recommend that you have your asthma worked up further before you have the surgery. Unfortunately, I cannot provide any test such as pulmonary function testing out of the ED. pulmonology referral could be considered if felt appropriate by your primary care provider. Have written for a short course of steroids, we will see if this helps her breathing at all, please let your primary care doctor know that you are taking this. It may be best if your shoulder surgery is delayed to further evaluate your breathing issues. Activity Level: Activity as Tolerated Prescriptions: New prednisone 20 mg tablet 20 mg PO BID Qty: 10 0RF No Action albuterol sulfate 2.5 mg /3 mL (0.083 %) solution for nebulization 2.5 mg inhalation Q6H PRN Label Comments: INHALE 3 ML VIA A NEBULIZER EVERY 6 HOURS clonazepam 1 mg tablet 1 mg PO .2-3X/DAY Label Comments: PRESCRIBED TWICE A DAY, SOMETIMES TAKES UP TO 3 TIMES PER DAY levothyroxine 88 mcg tablet 88 mcg PO DAILY Label Comments: TAKE ONE TABLET BY MOUTH EVERY DAY sertraline 25 mg tablet 50 mg PO DAILY albuterol sulfate 90 mcg/actuation HFA aerosol inhaler 2 puff inhalation Q4H PRN Label Comments: INHALE TWO PUFFS BY MOUTH EVERY 4 HOURS NEEDED FOR SHORTNESS OF BREATH OR WHEEZING fluticasone propionate [Flovent HFA] 110 mcg/actuation HFA aerosol inhaler 1 puff INHALATION BID PRN Label Comments: DOES NOT TAKE REGULARLY DUE TO COST Multivitamin Women 50 Plus 8 mg iron-400 mcg-300 mcg tablet 1 tab PO DAILY Follow Up/Referrals: Provider,Not a Local [Primary Care Provider] - Stand Alone Forms: [employer] Info Instructions
--- NOTE | 2022-06-24 18:25 | CRLHL7_ITS ---
For Patients: As a result of the Century Cures Act, medical imaging exams and procedure reports are released immediately into your electronic medical record. You may view this report before your referring provider. If you have questions, please contact your health care provider. INDICATION: One year history of cough, asthma TECHNIQUE: Chest 2 views. COMPARISON: May 06, 2022 FINDINGS: Cardiovascular and mediastinum: Heart size and vasculature are normal in caliber and appearance. Mediastinum is within normal limits. Lungs and pleural spaces: Lungs are clear. No sign of infiltrate or mass. No sign of pleural effusion. No pneumothorax. Bones and soft tissues: Chronic appearing deformity of the proximal right humerus. IMPRESSION: No sign of acute disease. Chronic appearing deformity of the proximal right humerus. Correlate with clinical history. Dictated by Stephanie Montgomery MD @ 06/24/2022 6:54:06 PM (Electronically Signed)
[2022-06-24 18:33] VITALS: BP 136/87; PULSE 88; RESP 16; TEMP 36.2; O2SAT 93
[2022-06-24 18:57] LABS: Basophils Absolute Auto 0.04 K/uL (0.00-0.30); Basophils Percent Auto 0.7 % (0.0-3.0); Eosinophils Percent Auto 9.7 % (0.0-7.0); Hematocrit 41.6 % (33.0-51.0); Immature Granulocytes Abs Auto 0.01 K/uL (0.00-0.30); Immature Granulocytes Pct Auto 0.2 %; Lymphocytes Absolute Auto 1.39 K/uL (0.90-2.90); Lymphocytes Percent Auto 24.1 % (20-44); Mean Corpuscular HGB Conc 34 gm/dL (32-36); Mean Corpuscular Hemoglobin 29 pg (26-34); Mean Corpuscular Volume 87 fL (80-100); Monocytes Percent Auto 7.6 % (0.0-11.0); Neutrophils Absolute Auto 3.33 K/uL (1.7-7.0); Neutrophils Percent Auto 57.7 % (42.0-72.0); Platelet Count* 180 K/uL (140-440); Red Blood Count 4.77 m/uL (4.00-5.20); White Blood Count* 5.77 K/uL (4.50-11.00)
[2022-06-24 19:20] LABS: Albumin* 4.3 g/dL (3.3-5.0); Chloride* 104 mmol/L (96-114); Sodium* 136 mmol/L (135-149)
[2022-06-24 19:21] LABS: Potassium* 4.2 mmol/L (3.6-5.1)
[2022-06-24 19:23] LABS: Alanine Aminotransferase* 15 U/L (4-35); Alkaline Phosphatase* 55 U/L (40-150); Aspartate Amino Transferase* 18 U/L (12-35); Bilirubin Total* 1.5 mg/dL (0.1-1.5); Blood Urea Nitrogen* 13 mg/dL (7-30); Carbon Dioxide* 23 mmol/L (20-32); Creatinine* 0.8 mg/dL (0.5-1.5); Est. Creatinine Clearance* 43.74; Estimated Glomerular Filt Rate 77 ml/min; Glucose* 108 mg/dL (60-115)
[2022-06-24 19:24] LABS: Calcium* 9.7 mg/dL (8.4-10.6)
[2022-06-24 19:46] LABS: Slide Review Reflex No
[2022-06-24 20:20] LABS: NT Pro B Type NatriureticPept* 1360 pg/mL
== END 2022-06-24 20:39 | disposition home or self-care (01) ==
PROVIDERS: Emergency Provider Family Medicine
DX: J45.909 Unspecified asthma, uncomplicated (principal)
CPT/HCPCS: 36415; 71046; 80053; 83880; 85025; 93005; 94761; 99284

== ENCOUNTER 2023-02-03 09:45 | Day surgery (SDC) | payer MEDICARE, BC, SELFPAY ==
[2023-02-03] VITALS (22 sets, daily range): BP systolic 113–175; BP diastolic 60–89; PULSE 60–99; RESP 14–18; TEMP 34.6–36.6; O2SAT 88–99; BMI 36.8
[2023-02-03] MEDS: LACTATED RINGERS 1000 ML 1,000 ML 100 ML IV ×2 (09:50→15:33)
[2023-02-03] MEDS: OXYCODONE (CR) 10 MG TAB.ER.12H PO (09:50)
[2023-02-03] MEDS: CELECOXIB 200 MG CAPSULE PO (09:50)
[2023-02-03] MEDS: ACETAMINOPHEN 500 MG TABLET 1000 MG PO ×2 (10:13→20:08)
[2023-02-03] MEDS: SODIUM CHLORIDE 0.9 % (FLUSH) 10 ML SYRINGE IVF ×2 (10:14→12:15)
[2023-02-03] MEDS: MIDAZOLAM HCL 1 MG/ML inj IVP (12:08)
[2023-02-03] MEDS: fentaNYL 100 MCG/2 ML inj IVP (12:08)
--- NOTE | 2023-02-03 12:16 | W.ANESCHARGE ---
Anesthesia Charges Start Date/Time Anesthesia Start Date: 02/03/23 Anesthesia Start Time: 12:44 Stop Date/Time Anesthesia Stop Date: 02/03/23 Anesthesia Stop Time: 16:22 Summary Extremes of Age - Over 70 or under 1: MDA
--- NOTE | 2023-02-03 12:17 | W.PM.NB ---
Nerve Block Nerve Block Time Seen by Provider: 12:11 Date Seen: 02/03/23 Type of block requested by surgeon for post-operative analgesia: supraclavicular Side: right Time out performed: Yes Verification of patient name: Yes Verification of date of : Yes Site marking: site marked Name of person performing procedure: Sandeep Continuous monitoring Was continuous monitoring of O2 sat, B/P, compensation analyst, recorded every 15 minutes?: Yes Procedure Checklist: sterile prep, needles and gloves Ultrasound guided. Images saved: Yes Medications given in 5ml increments after negative aspiration: Ropivicaine %: 0.5 mL: 20 Needle gauge: 22 Decadron (mg): 10 Precedex (mcg): 25 Patient tolerated procedure well: Yes Block Charges Block Charge (with Pro Fee): Brachial Plexus Use of Ultrasound Machine for Block: Yes- US Guidance/pain block
--- NOTE | 2023-02-03 12:17 | SUR.PREOP ---
TIME?OUT:?1207 PT/RN/MDA?VERIFICATION?OF?SURGICAL?SITE Right Shoulder,?PROCEDURE Supraclavicular Block,?AND?CONSENT OBTAINED?PRIOR?TO?INVASIVE?PROCEDURE.
[2023-02-03] MEDS: CEFAZOLIN 2 GM INJ IVP (12:58)
[2023-02-03] MEDS: TRANEXAMIC ACID 100 MG/ML INJ 1000 MG IV (13:00)
--- NOTE | 2023-02-03 15:51 | P.ORPRC_ITS ---
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 Tornier 25mm x 35 mm baseplate 2. 36mm standard glenosphere 3. 2B humeral stem 4. Low eccentric +0 humeral tray 5. 36mm +6 polyethylene INDICATIONS: The patient is a 77-year-old with a history of a fall several years ago resulting in a proximal humerus fracture. This was treated non operatively. She went on to a painful, atrophic nonunion. Operative intervention was offered. The risks, benefits and expected outcomes were discussed in detail. These included but were not limited to: Infection, bleeding, injury to blood vessel or nerve, venous thromboembolism. All questions were answered to their satisfaction. Use of an temporary office assistant was necessary throughout the case for patient positioning and safety, soft tissue retraction, and closure. A modifier 22 should be added to this case. The previous fracture and scarring made the dissection difficult and distorted the normal anatomy. Additionally, there was bone loss and deformity on the glenoid side. These factors more than doubled the time typically required to complete the case. PROCEDURE: General anesthesia was administered. The patient was placed in the lazy beach chair position on the operating room table. The right upper extremity was prepped and draped in the usual sterile fashion. A standard deltopectoral incision was made. Subcutaneous dissection was taken with electrocautery to the deltopectoral interval. The cephalic vein was mobilized, lateral branches were cauterized. The vein was taken medially with t he pectoralis. We bluntly entered the deltopectoral interval. We freed up the deltoid. The upper 1/3 of the insertion of the pectoralis was divided with cautery. The static retractor was placed. The clavipectoral fascia and CA ligament were divided. The circumflex vessels were controlled with electrocautery. The biceps was dissected out of the bicipital groove, was tagged with a #2 FiberWire suture and divided proximally. A fiberWire sutures was placed in the subscapularis. The subscap was subperiosteally elevated off of the lesser tuberosity. The rotator cuff was subperiosteally elevated off of the humeral head with electrocautery. This allowed us to remove the head fragment. Attention was then turned to the glenoid. The guide pin was placed using a freehand technique. Finger was placed over the glenoid neck 30 mm from the leading edge of the anterior glenoid. The guide pin was drilled out the anterior neck. The reamer was used to bleeding bone. The central drill was used x2. The standard base plate was placed. This had excellent purchase. Locking screws were placed. The glenosphere was placed, the set screw was tightened. Attention then returned to the humerus. A drill was used to enter the humeral canal. This was enlarged with another drill bit and curette were used to reconstitute the canal. Humeral sounds were used to assess the diameter of the canal. The broach was placed and had good rotational stability. We placed a high eccentric standard base plate and standard poly. We reduced the shoulder and took it through a range of motion. It was found to be stable with appropriate soft tissue tension. Height and version of the humeral component were marked. Trial humeral components were removed. The biceps was tenodesed in the bicipital groove with drill holes and our previously placed FiberWire suture. We placed #2 FiberWire sutures in the medial calcar for subsequent subscap repair. We assembled the humeral component on the back table. Antibiotic impregnated cement was mixed. When it was in the doughy phase it was placed around humeral component. We then placed it in the center of our subscapularis repair suture and tapped it down in an appropriate amount of version, to to the previous height. The cement was allowed to harden. The shoulder was reduced and again was found to be stable with appropriate soft tissue tension. We did a 3 min dilute Betadine solution soak. We irrigated the wound with 3 L of normal saline via pulse lavage. We repaired the subscapularis to the calcar with our previously placed FiberWire sutures. The deltopectoral interval was loosely reapproximated with an 0 Vicryl in an interrupted [id number] fashion. Subcutaneous tissues were closed with the 2-0 Vicryl and a running 3-0 Monocryl suture. The skin was sealed with glue. A dry dressing and sling were applied. Sponge and needle counts were correct x2. The patient tolerated the procedure well, there were no apparent complications. They were awakened and extubated in the operating room, taken to the postanesthesia care unit in satisfactory condition. PLAN: The patient will be mobilized with physical therapy. The sling will be used for 6 weeks postoperatively. Active range of motion in forward flexion and abduction as tolerates. No external rotation greater than 0? for 6 weeks postoperatively. They will be discharged to home once medically appropriate.
--- NOTE | 2023-02-03 16:21 | CRLHL7_ITS ---
For Patients: As a result of the Cures Act, medical imaging exams and procedure reports are released immediately into your electronic medical record. You may view this report before your referring provider. If you have questions, please contact your health care provider. Indication: Postop Technique: Two views right shoulder Findings/Impression: Hardware from a right total shoulder arthroplasty is in satisfactory position. Bone alignment is normal. No sign of acute fracture. Postop changes are within normal limits. Dictated by Kevin Razo MD @ 02/04/2023 10:37:22 AM (Electronically Signed)
--- NOTE | 2023-02-03 16:27 | P.ANES_ITS ---
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
--- NOTE | 2023-02-03 17:43 | PM.IMCN1 ---
Date of Consult Patient: Alejandra Patient Consult date: 02/03/23 Requesting Physician: Orthopedics Primary Care Provider: Heaven Aguilar Consult Narrative Reason for consult: s/p R shoulder reverse arthroplasty, HTN, mod dementia, WENDY, COPD, asthma Narrative: Alissa Red is a 77 year old woman who underwent an elective right shoulder reverse arthroplasty today due to nonunion of proximal right shoulder fracture status post standing full March 2021. Has had ongoing pain and loss of function since. Nonsurgical efforts unsuccessful. Intraoperative estimated blood loss 200 mL. 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 ?E03.8 - Other specified hypothyroidism (ICD-10) ?E06.3 - Autoimmune thyroiditis (ICD-10) Vitamin D deficiency ?E55.9 - Vitamin D deficiency, unspecified (ICD-10) Panic disorder ?F41.0 - Panic disorder [episodic paroxysmal anxiety] (ICD-10) Generalized anxiety disorder ?F41.1 - Generalized anxiety disorder (ICD-10) Chronic sinusitis ?J32.9 - Chronic sinusitis, unspecified (ICD-10) Arthritis of left knee ?M17.12 - Unilateral primary osteoarthritis, left knee (ICD-10) Degenerative tear of left medial meniscus ?M23.204 - Derangement of unspecified medial meniscus due to old tear or injury, left knee (ICD-10) Severe recurrent major depression without psychotic features ?F33.2 - Major depressive disorder, recurrent severe without psychotic features (ICD-10) Pulmonary hypertension ?I27.20 - Pulmonary hypertension, unspecified (ICD-10) Paroxysmal atrial fibrillation ?I48.0 - Paroxysmal atrial fibrillation (ICD-10) COPD with chronic bronchitis ?J44.9 - Chronic obstructive pulmonary disease, unspecified (ICD-10) Chest pain ?R07.9 - Chest pain, unspecified (ICD-10) Osteoarthritis ?M19.90 - Unspecified osteoarthritis, unspecified site (ICD-10) Depression ?F32.A - Depression, unspecified (ICD-10) Anxiety ?F41.9 - Anxiety disorder, unspecified (ICD-10) Hypertension ?I10 - Essential (primary) hypertension (ICD-10) Obstructive sleep apnea ?G47.33 - Obstructive sleep apnea (adult) (pediatric) (ICD-10) Peripheral edema ?R60.9 - Edema, unspecified (ICD-10) Asthma ?J45.909 - Unspecified asthma, uncomplicated (ICD-10) Surgical History (Updated 02/03/23 @ 17:53 by Robb Simpson MD) History of tonsillectomy and adenoidectomy ?Z90.89 - Acquired absence of other organs (ICD-10) History of arthroscopy of right knee (~2013) ?Z98.890 - Other specified postprocedural states (ICD-10) History of abdominal hysterectomy ?Z90.710 - Acquired absence of both cervix and uterus (ICD-10) H/O varicose vein stripping ?Z98.890 - Other specified postprocedural states (ICD-10) History of colonoscopy ?Z98.890 - Other specified postprocedural states (ICD-10) History of cataract surgery ?Z98.49 - Cataract extraction status, unspecified eye (ICD-10) History of esophagogastroduodenoscopy (EGD) ?Z98.890 - Other specified postprocedural states (ICD-10) History of hernia repair ?Z98.890 - Other specified postprocedural states (ICD-10) ?Z87.19 - Personal history of other diseases of the digestive system (ICD-10) History of laparoscopic cholecystectomy ?Z90.49 - Acquired absence of other specified parts of digestive tract (ICD-10) Family History Brother Alcohol dependence Bone cancer Prostate cancer Heart disease Social History (Reviewed 01/12/23 @ 10:08 by Janell Galdamez ~ [facility], [facility]) Narrative: She lives with her in [place]. 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 Code status is full. Remote history of smoking in high school and shortly afterwards. She does not drink alcohol. What is your current living situation?: I presently have a place to live In the past 12 months, utilities in danger of being shut off: no In the past 12 mos, have been you worried that your food would run out before you had money to buy more?: never true In the past 12 mos, the food you bought just didn't last and you didn't have money to buy more?: never true Highest level of school completed/degree received: some college, no degree Smoking Status: Never smoker Do you use any of these nicotine containing products: None Second hand tobacco smoke exposure: No How often do you have a drink containing alcohol: never AUDIT-C Alcohol total score: 0 Non-prescribed substance use: denies use Caffeine: No How often does anyone, including family, friends and others, physically hurt you: never How often does anyone, including family, friends and others, insult or talk down to you: never How often does anyone, including family, friends and others, threaten you with harm: never How often does anyone, including family, friends and others, scream or curse at you: never service: No Meds Home Medications and Allergies Home Medications Medication Instructions Recorded Confirmed Type albuterol sulfate 2.5 mg/3 mL 2.5 mg inhalation Q6H PRN 05/06/22 01/12/23 History (0.083 %) solution for nebulization albuterol sulfate 90 mcg/actuation 2 puff inhalation Q4H PRN 05/06/22 02/03/23 History aerosol inhaler clonazepam 1 mg tablet 1 mg PO .2-3X/DAY 05/06/22 02/03/23 History fluticasone propionate 110 1 puff inhalation BID PRN 05/06/22 02/03/23 History mcg/actuation HFA aerosol inhaler (Flovent HFA) levothyroxine 88 mcg tablet 88 mcg PO DAILY 05/06/22 02/03/23 History cetirizine 10 mg tablet (Allergy 10 mg PO DAILY PRN 01/12/23 02/03/23 History Relief (cetirizine)) prednisone 10 mg tablet mg PO 01/12/23 01/12/23 History Allergies Allergy/AdvReac Type Severity Reaction Status Date / Time No Known Drug Allergies Allergy Verified 02/03/23 10:01 Exam Narrative: Exam Narrative: Exam patient in her hospital room. Appears comfortable and in no acute distress. Vision and hearing are grossly normal. Alert and oriented to self, place, time, and in part to situation. Friendly, cooperative. Mood and affect are congruent. Presently lungs are clear to auscultation. On oxygen supplementation at 2 liters/minute via nasal cannula saturating in the upper 90s. Heart tones with regular rhythm. Abdomen with active bowel sounds, soft, nontender. Not moving right fingers yet. No focal motor neurologic deficits. Const: Vital Signs, click to edit/add: Vital Signs - 24 hr 02/03/23 10:04 02/03/23 12:07 02/03/23 12:12 Temperature 97.8 F Pulse Rate 71 63 60 Respiratory Rate 16 16 16 Blood Pressure 157/79 H 162/88 H 146/82 H Pulse Oximetry 96 99 99 Oxygen Delivery Me thod Room Air Nasal Cannula Nasal Cannula Oxygen Flow Rate 2 2 02/03/23 12:20 02/03/23 16:25 02/03/23 16:30 Temperature 97 F L Pulse Rate 61 79 73 Respiratory Rate 16 14 14 Blood Pressure 175/89 H 141/70 H 133/64 Pulse Oximetry 99 88 92 Oxygen Delivery Me thod Nasal Cannula Room Air Nasal Cannula Oxygen Flow Rate 2 4 02/03/23 16:35 02/03/23 16:40 02/03/23 16:45 Temperature Pulse Rate 80 78 80 Respiratory Rate 16 14 14 Blood Pressure 134/66 135/66 131/73 Pulse Oximetry 96 96 96 Oxygen Delivery Me thod Nasal Cannula Nasal Cannula Nasal Cannula Oxygen Flow Rate 4 4 4 02/03/23 16:50 02/03/23 16:55 Temperature 97.2 F L Pulse Rate 75 70 Respiratory Rate 14 14 Blood Pressure 127/75 131/70 Pulse Oximetry 96 97 Oxygen Delivery Me thod Nasal Cannula Nasal Cannula Oxygen Flow Rate 4 4 Documenting provider has reviewed patient's vital signs: yes Assessment and Plan Assessment and plan (1) Fracture of proximal end of right humerus with nonunion: Problem comment: Standing fall March 2021 Status: Acute (2) Status post reverse arthroplasty of right shoulder: Status: Acute (3) Obstructive sleep apnea: Problem comment: She denies this. Did have a sleep study. No CPAP Status: Acute (4) Asthma: Problem comment: Moderate persistent asthma without complication Status: Acute (5) COPD with chronic bronchitis: Status: Acute (6) Paroxysmal atrial fibrillation: Status: Acute (7) Pulmonary hypertension: Status: Acute (8) Hypoxia: Status: Acute (9) Dementia: Problem comment: - cognitive impairment evident during stay - continue f/u with PCP Status: Acute Plan 1. Reviewed impression with patient. 2. Answered her questions. 3. Will follow with Orthopedic surgery while patient is in the hospital. 4. Continue with her supportive medications. 5. Completed the hospitalist portion of the discharge orders. 6. Patient agreeable to above stated plans and recommendations.
--- NOTE | 2023-02-03 19:03 | PC.NURSE ---
Shift Summary: Patient arrive 1700, drowsy and confused, denies pain or nausea. Tolerating ice chips and fluids, offered dinner however stated she would rather sleep. O2 sats drop to low 80s on RA, has o2 @ 1.5L/NC while resting. Dressing dry and intact, cryocuff over shoulder, arm in sling. Vitals stable and WNL with temp low, patient refusing extra blankets, stated she is comfortable.
[2023-02-03] MEDS: CEFAZOLIN 2 GM in 0.9 % SODIUM CHLORIDE Mini-bag 100 ML IVPB (20:08)
[2023-02-03] MEDS: SENNOSIDES 1 TAB TABLET 2 TAB PO (20:33)
[2023-02-03] MEDS: ONDANSETRON 2 MG/ML inj 4 MG IVP (20:46)
[2023-02-04] MEDS: ACETAMINOPHEN 500 MG TABLET 1000 MG PO (00:40)
[2023-02-04 02:00] VITALS: BP 127/67; PULSE 59; RESP 16; TEMP 36.4; O2SAT 94
[2023-02-04] MEDS: CEFAZOLIN 2 GM in 0.9 % SODIUM CHLORIDE Mini-bag 100 ML IVPB (02:51)
--- NOTE | 2023-02-04 05:14 | PC.NURSE ---
End of shift: A only to self and place. Pt was quite loopy from the anesthesia. She got up to the BR in the evening and was dizzy/ nauseous. When she got back to bed, she had 1 episode of emesis (75 ml). PRN zofran was given. Tolerating liquids without N/V since then. No solid food intake, although it was encouraged... she kept stating I need to sleep. No reports of pain. R shoulder is in a sling, dressing is CDI, cyrocuff on continuously. Movement in R arm. Call light within reach. LR running @ 75 hr.
[2023-02-04] MEDS: LACTATED RINGERS 1000 ML 1,000 ML 75 ML IV (05:31)
[2023-02-04] MEDS: LEVOTHYROXINE 88 MCG TABLET PO (06:14)
[2023-02-04 07:03] LABS: Potassium* 4.4 mmol/L (3.6-5.1); Sodium* 135 mmol/L (135-149)
[2023-02-04 07:06] LABS: Creatinine* 0.8 mg/dL (0.5-1.5); Est. Creatinine Clearance* 37.85; Estimated Glomerular Filt Rate 76 ml/min; Hematocrit 37.6 % (33.0-51.0); Hemoglobin* 12.9 gm/dL (12.0-16.0); Mean Corpuscular HGB Conc 34 gm/dL (32-36); Mean Corpuscular Hemoglobin 30 pg (26-34); Mean Corpuscular Volume 88 fL (80-100); Platelet Count* 172 K/uL (140-440); Red Blood Count 4.28 m/uL (4.00-5.20); White Blood Count* 8.74 K/uL (4.50-11.00)
[2023-02-04 07:07] LABS: Blood Urea Nitrogen* 15 mg/dL (7-30)
[2023-02-04 07:09] LABS: Slide Review Reflex No
[2023-02-04 07:54] VITALS: BP 115/73; PULSE 55; RESP 16; TEMP 36.5; O2SAT 95
--- NOTE | 2023-02-04 10:13 | P.ORPN_ITS ---
Subjective Subjective Time Seen by Provider: 08:00 Date Seen: 02/04/23 Principal diagnosis: Status post right reverse total shoulder arthroplasty Interval history: The patient is comfortable this morning. She has no pain. She has range of motion of her fingers and wrist. She denies nausea and vomiting currently. Ortho Exam Narrative Exam Narrative: Alert and oriented x3. Patient is in no acute distress. Converses without labored breathing. Hearing is grossly intact. Ambulates with a normal gait. Examination of the right upper extremity shows the dressing is in place. Minimal edema. No warmth or erythema or sign of infection. Ice, cryocuff is not well placed. This is adjusted. Range of motion of the wrist, fingers is n ormal. Both hands are cool. Pulse on the right radial and ulnar are slightly more faint then on the left. They are present however. Capillary refill in 2 seconds. Sling is too large. Const Vital Signs, click to edit/add: Vital Signs - 24 hr 02/03/23 12:07 02/03/23 12:12 02/03/23 12:20 Temperature Pulse Rate 63 60 61 Pulse Rate [Pulse Oximeter] Respiratory Rate 16 16 16 Blood Pressure 162/88 H 146/82 H 175/89 H Blood Pressure [Left Arm] Pulse Oximetry 99 99 99 Oxygen Delivery Method Nasal Cannula Nasal Cannula Nasal Cannula Oxygen Flow Rate 2 2 2 02/03/23 16:25 02/03/23 16:30 02/03/23 16:35 Temperature 97 F L Pulse Rate 79 73 80 Pulse Rate [Pulse Oximeter] Respiratory Rate 14 14 16 Blood Pressure 141/70 H 133/64 134/66 Blood Pressure [Left Arm] Pulse Oximetry 88 92 96 Oxygen Delivery Method Room Air Nasal Cannula Nasal Cannula Oxygen Flow Rate 4 4 02/03/23 16:40 02/03/23 16:45 02/03/23 16:50 Temperature Pulse Rate 78 80 75 Pulse Rate [Pulse Oximeter] Respiratory Rate 14 14 14 Blood Pressure 135/66 131/73 127/75 Blood Pressure [Left Arm] Pulse Oximetry 96 96 96 Oxygen Delivery Method Nasal Cannula Nasal Cannula Nasal Cannula Oxygen Flow Rate 4 4 4 02/03/23 16:55 02/03/23 17:07 02/03/23 17:15 Temperature 97.2 F L 94.4 F L 94.5 F L Pulse Rate 70 66 Pulse Rate [Pulse Oximeter] 74 Respiratory Rate 14 14 14 Blood Pressure 131/70 Blood Pressure [Left Arm] 117/66 121/65 Pulse Oximetry 97 93 Oxygen Delivery Method Nasal Cannula Nasal Cannula Nasal Cannula Oxygen Flow Rate 4 1.5 1.5 02/03/23 17:30 02/03/23 17:45 02/03/23 18:00 Temperature 94.4 F L 94.3 F L Pulse Rate Pulse Rate [Pulse Oximeter] 70 75 92 Respiratory Rate 14 16 16 Blood Pressure Blood Pressure [Left Arm] 127/62 126/60 125/67 Pulse Oximetry 93 95 93 Oxygen Delivery Method Nasal Cannula Nasal Cannula Nasal Cannula Oxygen Flow Rate 1.5 1.5 1.5 02/03/23 18:30 02/03/23 19:39 02/03/23 20:30 Temperature 97.8 F 97.3 F L Pulse Rate Pulse Rate [Pulse Oximeter] 74 90 90 Respiratory Rate 14 16 16 Blood Pressure Blood Pressure [Left Arm] 128/62 122/67 113/78 Pulse Oximetry 95 96 93 Oxygen Delivery Method Nasal Cannula Nasal Cannula Oxygen Flow Rate 1.5 2 1 02/03/23 21:30 02/03/23 22:08 02/03/23 22:30 Temperature 97.3 F L Pulse Rate Pulse Rate [Pulse Oximeter] 99 78 Respiratory Rate 18 18 Blood Pressure Blood Pressure [Left Arm] 137/78 133/78 Pulse Oximetry 93 98 Oxygen Delivery Method Nasal Cannula Blow By Nasal Cannula Oxygen Flow Rate 1 1 02/03/23 23:16 02/04/23 02:00 02/04/23 07:54 Temperature 97.4 F L 97.6 F 97.7 F Pulse Rate Pulse Rate [Pulse Oximeter] 66 59 L 55 L Respiratory Rate 16 16 16 Blood Pressure Blood Pressure [Left Arm] 138/75 127/67 115/73 Pulse Oximetry 95 94 95 Oxygen Delivery Method Room Air Nasal Cannula Room Air Oxygen Flow Rate Assessment and Plan Assessment and plan (1) Fracture of proximal end of right humerus with nonunion: Problem details: Standing fall March 2021 Status: Acute (2) Status post reverse arthroplasty of right shoulder: Problem details: 02/03/2023 Status: Acute Assessment and Plan: Plan for discharge is to home when they meet discharge criteria. Patient will wear the sling for 6 weeks post surgery. They can take it off for comfort and for exercises. Sling is adjusted. It is a bit large, however it will work. Cryocuff is adjusted. Straps were not applied appropriately. Activity: no external rotation of the operative shoulder past 0? x 6 weeks. Forward flexion and abduction of the shoulder is allowed as tolerated. They will work on range of motion of the elbow, wrist, fingers once the block has wore off on the operative extremity. Patient will begin physical therapy for the operative shoulder next week. For discharge, oxycodone and Tylenol for pain. She will minimize oxycodone or not use it at all. She has not had an acute asthma attack for very long time. She will not take oxycodone during asthma attacks. She has not needed oxycodone in the hospital, for she has no pain. Do not drive while on narcotic pain medication. Drive only when safe to do so, when they have normal use/function of the upper extremity, this will likely take Wear the sling for 6 weeks post-surgery. Take it off for comfort and for exercises. Activity: no external rotation of the operative shoulder past 0? x 6 weeks. Forward flexion and abduction of the shoulder is allowed as tolerated. Range of motion of the elbow, wrist, fingers once the block has worn off on the operative extremity 3 or more times per day. Begin physical therapy for the operative shoulder next week. Do not drive while on narcotic pain medication. Drive only when safe to do so, when you have normal use/function of the upper extremity, this will likely take at least 6 weeks due to wearing a sling. Minimize and discontinue the narcotic as soon as possible. Remove dressing in 1 week. Dressing is waterproof. May shower. Surgical glue covers the wound. Do not scrub the wound. Expect swelling and bruising about the shoulder and upper extremity. Use of ice/active ice without restriction. notify Orthopedics with any questions or concerns [phone]. Return to Orthopedic clinic next week for a wound check as scheduled Return to clinic in [address] Whittington. (3) Obstructive sleep apnea: Problem details: She denies this. Did have a sleep study. No CPAP Status: Acute (4) Asthma: Problem details: Moderate persistent asthma without complication Status: Acute (5) COPD with chronic bronchitis: Status: Acute (6) Paroxysmal atrial fibrillation: Status: Acute (7) Pulmonary hypertension: Status: Acute (8) Hypoxia: Status: Acute (9) Dementia: Problem details: - cognitive impairment evident during stay - continue f/u with PCP Status: Acute
--- NOTE | 2023-02-04 11:05 | PC.NURSE ---
Discharge: Patient pleasant and cooperative. Up with SBA. Tolerating sling well, ice on site, dressing dry and intact. Vitals stable and WNL, tolerated regular diet well, denied nausea. Worked with PT/OT. present all morning and supportive. Refusing medication stated she'll take it when she gets home. Refused to take home cryocuff, two ice packs given instead. Pain all morning has been 0/10. Discharge instructions, medications and follow ups reviewed with patient and . Discharged via wheelchair @ 1055.
== END 2023-02-04 10:55 | disposition home or self-care (01) ==
LOC: OR 09:46 → MEDSURG 09:48
PROVIDERS: PCP Internal Medicine; Visit Provider Orthopaedic Surgery
PROC: 0RRJ0JZ Replacement of Right Shoulder Joint with Synthetic Substitute, Open Approach (ICD-10-PCS; CPT 23472; principal; 2023-02-03 12:15)
DX: S42.291A Other displaced fracture of upper end of right humerus, initial encounter for closed fracture (principal); G47.33 Obstructive sleep apnea (adult) (pediatric); J44.9 Chronic obstructive pulmonary disease, unspecified; J45.40 Moderate persistent asthma, uncomplicated; F03.90 Unspecified dementia, unspecified severity, without behavioral disturbance, psychotic disturbance, mood disturbance, and anxiety; I48.0 Paroxysmal atrial fibrillation; I27.20 Pulmonary hypertension, unspecified; G89.18 Other acute postprocedural pain
CPT/HCPCS: 23472; 01638; 36415; 64415; 73030; 76942; 82565; 84132; 84295; 84520; 85027; 97110; 97116; 97161; 97165; 97535; 99100; A9270; C1713; C1776; J0330; J0690; J1100; J2250; J2371; J2405; J2704; J2710; J2765; J2795; J3010; J7120

== ENCOUNTER 2023-03-05 13:45 | Outpatient (RCR) | payer MEDICARE, MEDICAID, BC, SELFPAY | END 2023-07-03 23:59 | disposition home or self-care (01) | PROVIDERS: PCP Internal Medicine; Visit Provider Orthopaedic Surgery | DX: M19.011 Primary osteoarthritis, right shoulder (principal); Z96.611 Presence of right artificial shoulder joint; M25.511 Pain in right shoulder; M25.611 Stiffness of right shoulder, not elsewhere classified; Z51.89 Encounter for other specified aftercare | CPT/HCPCS: 97110; 97140; 97162; 97165 ==